=== PATIENT | female | born 1960 | race Two or more races ===

== ENCOUNTER 2022-01-23 06:19 | Day surgery (SDC) | payer OTHER | END 2022-01-23 10:25 | disposition home or self-care (01) | LOC: AMB-ENDOS 06:19 | PROVIDERS: ATTEND Surgery | DX: D12.2 Benign neoplasm of ascending colon (principal); K57.90 Diverticulosis of intestine, part unspecified, without perforation or abscess without bleeding; Z88.6 Allergy status to analgesic agent; Z20.822 Contact with and (suspected) exposure to COVID-19 ==

== ENCOUNTER 2023-03-04 09:13 | Inpatient (IN) | payer OTHER ==
[~2023-03-04] VITALS: Ht 170.2 cm; Wt 86.2 kg
[2023-03-04 11:30] LABS: ALBUMIN 3.6 gm/dL (3.4-5.0); BILIRUBIN TOTAL 0.75 mg/dL (0.3-1.2); CREATININE SERUM 0.78 mg/dL (0.55-1.02); GFR 74.35; POTASSIUM 4.3 mEq/L (3.5-5.1); TOTAL PROTEIN 6.6 gm/dL (6.4-8.2)
[2023-03-09] MEDS ORDERED: BUPROPION HCL150 M1 (08:10)
[2023-03-09 16:11] LABS: HEMATOCRIT 44.7 % (36.0-45.00); HEMOGLOBIN 14.9 g/dL (12.0-15.00); MEAN CELL VOLUME 99.2 fL (80.00-100.00); MEAN CORPUSCULAR HEMOGLOBIN 33.1 pg (27.00-32.0); MEAN CORPUSCULAR HGB CONC 33.4 g/dl (32.0-36.0); PLATELET COUNT 315 K/uL (150-450); RED CELL DISTRIBUTION WIDTH 14.1 % (11.5-14.5)
[2023-03-09 16:12] LABS: ALBUMIN 3.3 gm/dL (3.4-5.0); CREATININE SERUM 0.8 mg/dL (0.55-1.02); GFR 72.21; MAGNESIUM 2.4 mg/dL (1.8-2.4); PHOSPHOROUS 3.4 mg/dL (2.5-4.9); POTASSIUM 4.48 mEq/L (3.5-5.1)
[2023-03-10 06:43] LABS: HEMATOCRIT 38.4 % (36.0-45.00); MEAN CELL VOLUME 98.8 fL (80.00-100.00); MEAN CORPUSCULAR HEMOGLOBIN 33.4 pg (27.00-32.0); MEAN CORPUSCULAR HGB CONC 33.8 g/dl (32.0-36.0); PLATELET COUNT 255 K/uL (150-450); RED BLOOD COUNT 3.89 M/uL (4.00-6.00); RED CELL DISTRIBUTION WIDTH 13.9 % (11.5-14.5)
[2023-03-10 06:53] LABS: ALBUMIN 2.8 gm/dL (3.4-5.0); CALCIUM 8.4 mg/dL (8.5-10.1); CREATININE SERUM 0.76 mg/dL (0.55-1.02); GFR 76.62; PHOSPHOROUS 2.9 mg/dL (2.5-4.9); POTASSIUM 4.21 mEq/L (3.5-5.1)
[2023-03-11 04:58] LABS: HEMATOCRIT 40.6 % (36.0-45.00); HEMOGLOBIN 13.7 g/dL (12.0-15.00); MEAN CELL VOLUME 99.3 fL (80.00-100.00); MEAN CORPUSCULAR HEMOGLOBIN 33.4 pg (27.00-32.0); MEAN CORPUSCULAR HGB CONC 33.7 g/dl (32.0-36.0); PLATELET COUNT 277 K/uL (150-450); RED BLOOD COUNT 4.08 M/uL (4.00-6.00); RED CELL DISTRIBUTION WIDTH 13.6 % (11.5-14.5)
[2023-03-11 05:14] LABS: CALCIUM 8.7 mg/dL (8.5-10.1); CREATININE SERUM 0.75 mg/dL (0.55-1.02); GFR 77.8; PHOSPHOROUS 3.1 mg/dL (2.5-4.9); POTASSIUM 4.24 mEq/L (3.5-5.1)
[2023-03-11] MEDS ORDERED: HYOSCYAMINE0.125 M1 SL (15:41)
== END 2023-03-11 17:53 | disposition home or self-care (01) | DRG 330 ==
LOC: SURH 03-09 05:40 → O/R 03-09 05:40 → SURG 03-09 09:15 → SURH 03-09 15:04
PROVIDERS: Internal Medicine Geriatric Medicine; ADMIT Surgery; ATTEND Surgery
PROC: 07BB4ZZ Excision of Mesenteric Lymphatic, Percutaneous Endoscopic Approach (ICD-10-PCS; 2023-03-09)
PROC: 0DTF4ZZ Resection of Right Large Intestine, Percutaneous Endoscopic Approach (ICD-10-PCS; principal; 2023-03-09 10:00)
DX: D12.2 Benign neoplasm of ascending colon (principal); K92.1 Melena; R59.9 Enlarged lymph nodes, unspecified